=== PATIENT | male | born 1955 | race Asian ===

== ENCOUNTER 2020-02-06 12:29 | Emergency (ER) | payer BC ==
--- NOTE | 2020-02-06 13:01 | EDM.PDOC ---
ED HPI GENERAL MEDICAL PROBLEM - General Chief Complaint: Eye Problems Stated Complaint: RED LEFT EYE AND RIGHT EYE SORE Time Seen by Provider: 02/06/20 12:38 Source of Information: Reports: Patient History Limitations: Reports: Language Barrier (A language barrier but he has been able to communicate with a ) - History of Present Illness INITIAL COMMENTS - FREE TEXT/NARRATIVE: 64-year-old male of the [place] presents to the ED with a red slightly painful left eye. He noticed this yesterday but it became much worse overnight. He has no known trauma to the eye that he can recollect. He takes no eyedrops. He indicates that he has no change in his vision with his eyeglasses. Denies any other problems. He is not on aspirin or any other blood thinners. Feels like there is something in the lateral aspect of his eye. Onset: Gradual Onset Date: 02/05/20 Duration: Hour(s):, Getting Worse Location: Reports: Face (Appreciates blood lateral aspect left eye) Quality: Reports: Ache Severity: Mild (Aching discomfort.) Improves with: Reports: None Worsens with: Reports: None Context: Reports: Other (Fr[place] is occurrence). 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 Heart rate is 58 and sinus respiratory to 16 BP 138/68. Pulse ox 96% on room air). Denies: Fever, Chills, Malaise, Weakness, Fatigue HEENT: Reports: Eye Pain (Has left lateral eye discomfort), Glasses ( like there is something in his eye.) Respiratory: Reports: No Symptoms Cardiovascular: Reports: No Symptoms Endocrine: Reports: No Symptoms GI/Abdominal: Reports: No Symptoms : Reports: No Symptoms Musculoskeletal: Reports: No Symptoms Skin: Reports: No Symptoms Neurological: Reports: No Symptoms Psychiatric: Reports: No Symptoms Hematologic/Lymphatic: Reports: No Symptoms Immunologic: Reports: No Symptoms ED EXAM GENERAL W FULL EYE - Physical Exam Exam: See Below Exam Limited By: Other (Temperature is 36.1. Heart rate is 58 and sinus respiratory to 16 BP 138/60. O2 sats 96% on room air) General Appearance: Alert, WD/WN, Anxious, Mild Distress Eye Exam: Right Eye: Other (The fundus is also normal on ophthalmoscopy.), Left Eye: Conjunctival Injection (And has a fairly large subconjunctival hemorrhage of the left lateral eye covers approximately 40% of the lateral light to the midline inferiorly and adjacent to the cornea.), Normal Fundi, PERRL Eyelids: Bilateral: Normal Appearance Conjunctiva & Sclera: Left: Subconjuctival Hemorrhage (Moderate lateral left eye ) Cornea Exam: Left: Normal Appearance (Normal appearance on slit lamp examination.) Extraocular Movements: Bilateral: Intact Pupils: Normal Accommodation Pupillary Size: Bilateral: 5 mm Pupillary Reaction: Bilateral: Brisk Anterior Chamber: Left: Normal Appearance Posterior Chamber: Left: Normal Funduscopic Course - Vital Signs Last Recorded V/S: Last Vital Signs Temp 36.1 C 02/06/20 12:42 Pulse 58 L 02/06/20 12:42 Resp 16 02/06/20 12:42 BP 138/68 02/06/20 12:42 Pulse Ox 96 02/06/20 12:42 - Radiology Interpretation Free Text/Narrative:: T4-year-old male of [place] presents to the ED with redness and feeling a foreign body sensation left lateral eye. He first appreciated this last evening but it seemed to worsen overnight. Examination reveals he has a subconjunctival hemorrhage lateral aspect of the eye to the midline inferiorly and adjacent to the limbus. It travels superiorly into the upper quadrant laterally as well. There is no evidence of corneal abrasion anterior chamber is clear the posterior chambers clear and the retina is well-defined without any abnormalities appreciated on slit-lamp as well as indirect ophthalmoscopy. Conservative Rx. Departure - Departure Time of Disposition: 12:59 Disposition: Home, Self-Care 01 Condition: Fair Clinical Impression: Subconjunctival hemorrhage of left eye - Discharge Information *PRESCRIPTION DRUG MONITORING PROGRAM REVIEWED*: Not Applicable *COPY OF PRESCRIPTION DRUG MONITORING REPORT IN PATIENT [place]: Not Applicable Instructions: Subconjunctival Hemorrhage Referrals: PCP,None [Primary Care Provider] - Forms: ED Department Discharge Additional Instructions: Evaluation in the emergency room today in regards to blood appreciated on the lateral aspect of your left thigh. This appears to have started yesterday and worsened overnight. Trauma to the eye. No change in visual acuity. On examination there is blood underneath the conjunctiva which is a clear membrane over the eye. A broken blood vessel is appreciated in this area that has caused the blood on the lateral aspect of the eye. There is no abnormalities of the inside of the eye or retina and it will not interfere with your vision. The bleeding will quit on its own and go through all the colors of a bruise over the next 10 to 14 days and go away. It often will recur sometime within the next year or 2. Also sometimes it will occur in the other eye within a short period of time. Possibility of rubbing the eye during the night while sleeping could have caused this but sometimes it just happens because blood vessels get old and break on their own. It looks bad but it means nothing. Sepsis Event Note - Evaluation Sepsis Screening Result: No Definite Risk - Focused Exam Vital Signs: Vital Signs Temp Pulse Resp BP Pulse Ox 02/06/20 12:42 36.1 C 58 L 16 138/68 96 Date Exam was Performed: 02/06/20 Time Exam was Performed: 13:01
== END 2020-02-06 13:25 | disposition home or self-care (01) ==
LOC: JD.ED 12:29
DX: H11.32 Conjunctival hemorrhage, left eye (principal)
CPT/HCPCS: 99282; 99283

== ENCOUNTER 2020-10-20 23:41 | Emergency (ER) | payer BC ==
[2020-10-21] MEDS ORDERED: FLU VACC QS2020-21(6MOS UP)/PF 60 MCG/0.5 ML SYRINGE IM ONE (00:15)
--- NOTE | 2020-10-21 00:43 | EDM.PDOC ---
ED HPI GENERAL MEDICAL PROBLEM - General Chief Complaint: Upper Extremity Injury/Pain Stated Complaint: LEFT SHOULDER PAIN Time Seen by Provider: 10/21/20 00:09 Source of Information: Reports: Patient History Limitations: Reports: Language Barrier (Uses iPad Source Audio state tested nursing assistant) - History of Present Illness INITIAL COMMENTS - FREE TEXT/NARRATIVE: Mr. Alonso is a very pleasant 65-year-old gentleman who now presents to the ED with progressively worsening pain tohis left scapula for the past 2 days, since 10/18/2019. He denies suffering any injury to the area, and he does not recall straining it. No prior similar pain. The patient applied an icy hot patch to the area this evening, which has not helped. Here in the ED, the patient is found to be hemodynamically stable, afebrile, saturating 96% on room air. Prior to Friday, the patient denies having a recent fever, chills, sore throat, ear pain, nasal or sinus congestion, cough, dyspnea, chest pain, palpita tions, nausea, vomiting, constipation, diarrhea, abdominal pain, urinary symptoms, recent weight gain or weight loss, recent bloody bowel movements or black bowel movements, recent joint aches, headaches, or rashes. His PCP is Dr. Mohamud Basilio. He has not received an influenza vaccine this season, but agreed to receive one here in the ED. Left Posterior Shoulder Pain Score (Numeric/FACES): 8 - Related Data Allergies Allergy/AdvReac Type Severity Reaction Status Date / Time Sulfa (Sulfonamide Allergy Severe Rash Verified 10/21/20 00:01 Antibiotics) Home Meds: Home Meds Orphenadrine [Norflex] 1 tab PO Q12H PRN #14 tab.er 10/21/20 [Rx] Past Medical History HEENT History: Reports: Other (See Below) (left eye hemorrage) Endocrine/Metabolic History: Reports: Diabetes, Type II (untreated) Social & Family History - Tobacco Use Tobacco Use Status *Q: Former Tobacco User Years of Tobacco use: 33 Packs/Tins Daily: 0.1 Month/Year Tobacco Last Used: Quit around 2009 Second Hand Smoke Exposure: No - Caffeine Use Caffeine Use: Reports: Tea - Alcohol Use Alcohol Use History: No - Recreational Drug Use Recreational Drug Use: No - Living Situation & Occupation Living situation: Reports: , Alone ( and kids live in [place]) 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 ED EXAM, GENERAL - Physical Exam Exam: See Below Exam Limited By: No Limitations General Appearance: Alert, No Apparent Distress, Thin Eye Exam: Bilateral Eye: EOMI, Normal Inspection Ears: Normal External Exam, Hearing Grossly Normal Nose: Normal Inspection Throat/Mouth: Normal Inspection, Normal Lips, Normal Voice, No Airway Compromise Head: Atraumatic, Normocephalic Neck: Normal Inspection, Full Range of Motion Respiratory/Chest: No Respiratory Distress, Lungs Clear, Normal Breath Sounds, No Accessory Muscle Use Cardiovascular: Normal Peripheral Pulses, Regular Rate, Rhythm, No Edema, No Gallop, No JVD, No Murmur, No Rub Peripheral Pulses: 3+: Radial (L), Radial (R) GI/Abdominal: Normal Bowel Sounds, Soft, Non-Tender, No Organomegaly, No Distention, No Abnormal Bruit, No Mass Back Exam: Normal Inspection, Full Range of Motion, Other (No visible abnormality to the left scapular area, where the patient indicates his pain is, such as swelling, erythema, ecchymosis, or abrasion, however, the patient's pain is reproducible with direct palpation over his left scapula. Pain is also worsened with movement of his left upper extremity.) Extremities: Normal Inspection, Normal Range of Motion, No Pedal Edema, Normal Capillary Refill Neurological: Alert, Oriented, Normal Cognition, No Motor/Sensory Deficits Psychiatric: Normal Affect Skin Exam: Warm, Dry, Intact, Normal Color, No Rash Course - Vital Signs Last Recorded V/S: Last Vital Signs Temp 37.5 C 10/20/20 23:54 Pulse 69 10/20/20 23:54 Resp 20 10/20/20 23:54 BP 138/71 10/20/20 23:54 Pulse Ox 96 10/20/20 23:54 - Orders/Labs/Meds Orders: Active Orders 24 hr Category Date Time Status Chest 2V [CR] Stat Exams 10/21/20 00:37 Taken Shoulder Comp Lt [CR] Stat Exams 10/21/20 00:37 Taken Meds: Medications Discontinued Medications Generic Name Dose Route Start Last Admin Trade Name Freq PRN Reason Stop Dose Admin Ibuprofen 600 mg 01/30/21 02:28 10/21/20 02:53 Motrin PO 10/21/20 02:29 600 mg ONETIME ONE Administration Influenza Virus Vaccine 60 mcg 10/21/20 00:15 10/21/20 02:51 Fluzone Quad Syringe IM 10/21/20 00:16 60 mcg .ONCE ONE Administration Orphenadrine Citrate 100 mg 10/21/20 02:28 10/21/20 02:53 Norflex PO 10/21/20 02:29 100 mg ONETIME STA Administration - Re-Assessments/Exams Free Text/Narrative Re-Assessment/Exam: 10/21/20 00:38 As above, the patient has had progressively worsening left scapular pain since 10/18/2020. An icy hot patch that he applied this evening is not helping. On examination, there are no visible abnormalities to the area, but the pain is reproducible with direct palpation, strongly suggesting an inf raspinatus strain. I have ordered a work-up that includes both a chest x-ray and x-rays of the left shoulder to rule out other possibilities. 10/21/20 02:17 Two-view chest radiograph reviewed. The cardiac silhouette is within normal limits. No pulmonary vascular congestion. No pleural effusions. No focal infiltrate. No pneumothorax. There is thoracolumbar scoliosis. Formal read per the Radiologist pending. 3-view radiographs of the left shoulder appear to be grossly normal, with no fracture or dislocation identified. Formal read per the Radiologist pending. Based on the above, I suspect that the patient's left scapular pain is musculoskeletal in etiology. I will recommend starting him on Norflex, along with ibuprofen. Additionally, the patient may be an excellent candidate for dry needling, presuming he will still have pain by Friday. 10/21/20 02:27 X-ray results discussed with the patient via the iPad press tender short goods. All questions answered. He is agreeable to taking Norflex and ibuprofen, however, he declined an offer for referral to PT for dry needling. The patient stated that he would not have a problem with his discharge instructions being in [place]. The patient will be given an influenza vaccine prior to discharge. Departure - Departure Time of Disposition: 02:29 Disposition: Home, Self-Care 01 Condition: Good Clinical Impression: Infraspinatus strain - Discharge Information *PRESCRIPTION DRUG MONITORING PROGRAM REVIEWED*: Not Applicable *COPY OF PRESCRIPTION DRUG MONITORING REPORT IN PATIENT [place]: Not Applicable Prescriptions: Orphenadrine [Norflex] 1 tab PO Q12H PRN #14 tab.er PRN Reason: Muscle Spasm Instructions: Muscle Strain, [id number] Referrals: PCP,Not In Area [Ordering Only Provider] - Forms: ED Department Discharge Additional Instructions: You were seen in the emergency room after developing progressively worsening pain to the back of your left shoulder on Friday. Work-up in the ER included a chest x-ray and x-rays of your left shoulder, all of which were completely normal. No broken bones, popped lung, masses in your chest, or other anatomic abnormalities were found. Based on your history, physical exam, and ER x-rays, the cause of your pain is most likely due to a strain or spasm of your left infraspinatus muscle. This is a muscle that is found on the back of your scapula (shoulder blade). You have been started on the muscle relaxant Norflex, and a prescription for Nor flex has been sent to the [facility], located in the [employer] store. Take 1 tablet of Norflex every 12 hours, starting this evening, 10/21/2020. In addition to Norflex, you may also take [id number] ibuprofen, 2 to 3 tablets (400 to 600 mg) up to every 8 hours, with food, as needed for discomfort. If your pain has not significantly improved after a few days, we recommend that you follow-up with your PCP, Dr. Mohamud Basilio. If any other problems, please do not hesitate to return to the ER. You were given an influenza vaccine during your ER visit. Sepsis Event Note (ED) - Evaluation Sepsis Screening Result: No Definite Risk - Focused Exam Vital Signs: Vital Signs Temp Pulse Resp BP Pulse Ox 10/20/20 23:54 37.5 C 69 20 138/71 96 - My Orders Last 24 Hours: My Active Orders 10/21/20 00:37 Chest 2V [CR] Stat Shoulder Comp Lt [CR] Stat - Assessment/Plan Last 24 Hours: My Active Orders 10/21/20 00:37 Chest 2V [CR] Stat Shoulder Comp Lt [CR] Stat
[2020-10-21] MEDS ORDERED: Ibuprofen 600 MG Tab PO ONE (02:28)
[2020-10-21] MEDS ORDERED: Orphenadrine 100 MG Tab.ER PO STA (02:28)
--- NOTE | 2020-10-21 10:22 | CR ---
Chest: 2 views of the chest were obtained. Comparison: No prior chest imaging is available. Heart size is normal. Tortuous thoracic aorta is seen. Lungs are clear and no acute parenchymal change. Mild scoliosis is noted. Impression: 1. Nothing acute is identified on frontal chest x-ray. Diagnostic code #2
--- NOTE | 2020-10-21 10:33 | CR ---
Left shoulder: 3 views left shoulder were obtained. Comparison: Prior left clavicle study of 03/31/18. Mild degenerative change is seen within the acromioclavicular joint with mild inferior spurring. Glenohumeral joint shows minimal spurring. No acute fracture, dislocation or other bony abnormality is appreciated. Impression: 1. Slight degenerative change as noted above. 2. Nothing acute is appreciated. Diagnostic code #2
== END 2020-10-21 03:00 | disposition home or self-care (01) ==
LOC: JD.ED 23:41
DX: S46.912A Strain of unspecified muscle, fascia and tendon at shoulder and upper arm level, left arm, initial encounter (principal); Z88.2 Allergy status to sulfonamides; Z87.891 Personal history of nicotine dependence; Z23 Encounter for immunization; X58.XXXA Exposure to other specified factors, initial encounter
CPT/HCPCS: 71046; 73030; 90471; 90686; 99283; A9270; G0008

== ENCOUNTER 2021-07-23 14:36 | Emergency (ER) | payer BC ==
--- NOTE | 2021-07-23 15:26 | EDM.PDOC ---
ED HPI GENERAL MEDICAL PROBLEM - General Chief Complaint: Respiratory Problem Stated Complaint: DIZZY AND COUGH Time Seen by Provider: 07/23/21 15:14 Source of Information: Reports: Patient, RN Notes Reviewed History Limitations: Reports: No Limitations, Language Barrier (slight; pt speaks little icelandic-son on phone helps to translate) - History of Present Illness INITIAL COMMENTS - FREE TEXT/NARRATIVE: Patient is a 66-year-old male who presents to the ER for the evaluation of his cough and dizziness. Patient states that he has been symptomatic for about 10 days. States that the dizziness is generalized, and he is not found anything that is really made it better or worse. He has a dry intermittent cough as well. He states that he had a fever may be about 2 or 3 weeks ago but has not noticed any fever at this time. Patient states he has a medical care provider but cannot member the name but states they work at [facility]. He is a diabetic. Patient's not been around anyone has been sick that he is aware of. States that is been taking his medications as prescribed. Patient is not predominantly Georgian speaking, so the patient's son is on the phone to help translate. - Related Data Allergies Allergy/AdvReac Type Severity Reaction Status Date / Time Sulfa (Sulfonamide Allergy Intermediate Rash Verified 07/23/21 15:08 Antibiotics) Home Meds: Home Meds metFORMIN [Glucophage] 1 tab PO BIDMEALS #60 tab 07/23/21 [Rx] Past Medical History HEENT History: Reports: Epistaxis Endocrine/Metabolic History: Reports: Diabetes, Type II Social & Family History - Tobacco Use Tobacco Use Status *Q: Never Tobacco User - Caffeine Use Caffeine Use: Reports: Soda ED ROS GENERAL - Review of Systems Review Of Systems: Comprehensive ROS is negative, except as noted in HPI. ED EXAM, GENERAL - Physical Exam Exam: See Below Exam Limited By: No Limitations General Appearance: Alert, WD/WN, No Apparent Distress Respiratory/Chest: No Respiratory Distress, Lungs Clear, Normal Breath Sounds, No Accessory Muscle Use, Chest Non-Tender Cardiovascular: Normal Peripheral Pulses, Regular Rate, Rhythm, No Edema Extremities: Normal Inspection, Normal Capillary Refill Neurological: Alert, Oriented, Normal Cognition, No Motor/Sensory Deficits Psychiatric: Normal Affect, Normal Mood Skin Exam: Warm, Dry, Intact, Normal Color, No Rash Course - Vital Signs Last Recorded V/S: Last Vital Signs Temp 98.2 F 07/23/21 15:03 Pulse 64 07/23/21 15:03 Resp 18 07/23/21 15:03 BP 137/64 07/23/21 15:03 Pulse Ox 100 07/23/21 15:03 - Orders/Labs/Meds Orders: Active Orders 24 hr Category Date Time Status Peripheral IV Insertion Adult [OM.PC] Routine Oth 07/23/21 16:14 Ordered Labs: Laboratory Tests 07/23/21 07/23/21 07/23/21 Range/Units 15:29 15:29 15:29 WBC 5.66 (4.23-9.07) K/mm3 RBC 4.11 L (4.63-6.08) M/mm3 Hgb 12.3 L (13.7-17.5) gm/dl Hct 37.4 L (40.1-51.0) % MCV 91.0 (79.0-92.2) fl MCH 29.9 (25.7-32.2) pg MCHC 32.9 (32.2-35.5) g/dl RDW Std Deviation 40.2 (35.1-43.9) fL Plt Count 304 (163-337) K/mm3 MPV 8.9 L (9.4-12.3) fl Neut % (Auto) 58.5 (34.0-67.9) % Lymph % (Auto) 29.7 (21.8-53.1) % [place] % (Auto) 10.2 (5.3-12.2) % Eos % (Auto) 1.4 (0.8-7.0) Baso % (Auto) 0.0 L (0.1-1.2) % Neut # (Auto) 3.31 (1.78-5.38) K/mm3 Lymph # (Auto) 1.68 (1.32-3.57) K/mm3 [place] # (Auto) 0.58 (0.30-0.82) K/mm3 Eos # (Auto) 0.08 (0.04-0.54) K/mm3 Baso # (Auto) 0.00 L (0.01-0.08) K/mm3 Sodium 135 L (136-145) mEq/L Potassium 4.2 (3.5-5.1) mEq/L Chloride 98 (98-107) mEq/L Carbon Dioxide 28 (21-32) mEq/L Anion Gap 13.2 (5-15) BUN 18 (7-18) mg/dL Creatinine 1.2 (0.7-1.3) mg/dL Est Cr Clr Drug Dosing TNP Estimated GFR (MDRD) > 60 (>60) mL/min BUN/Creatinine Ratio 15.0 (14-18) Glucose 440 H* (70-99) mg/dL POC Glucose (70-99) mg/dL Calcium 8.5 (8.5-10.1) mg/dL Magnesium 1.9 (1.8-2.4) mg/dL Total Bilirubin 0.4 (0.2-1.0) mg/dL AST 14 L (15-37) U/L ALT 26 (16-63) U/L Alkaline Phosphatase 97 (46-116) U/L C-Reactive Protein <0.2 (<1.0) mg/dL Total Protein 6.8 (6.4-8.2) g/dl Albumin 3.4 (3.4-5.0) g/dl Globulin 3.4 gm/dL Albumin/Globulin Ratio 1.0 (1-2) Ketones (0.0-0.3) mM SARS-CoV-2 RNA (LEXIE) (NEGATIVE) 07/23/21 07/23/21 07/23/21 Range/Units 15:29 17:33 17:35 WBC (4.23-9.07) K/mm3 RBC (4.63-6.08) M/mm3 Hgb (13.7-17.5) gm/dl Hct (40.1-51.0) % MCV (79.0-92.2) fl MCH (25.7-32.2) pg MCHC (32.2-35.5) g/dl RDW Std Deviation (35.1-43.9) fL Plt Count (163-337) K/mm3 MPV (9.4-12.3) fl Neut % (Auto) (34.0-67.9) % Lymph % (Auto) (21.8-53.1) % [place] % (Auto) (5.3-12.2) % Eos % (Auto) (0.8-7.0) Baso % (Auto) (0.1-1.2) % Neut # (Auto) (1.78-5.38) K/mm3 Lymph # (Auto) (1.32-3.57) K/mm3 [place] # (Auto) (0.30-0.82) K/mm3 Eos # (Auto) (0.04-0.54) K/mm3 Baso # (Auto) (0.01-0.08) K/mm3 Sodium (136-145) mEq/L Potassium (3.5-5.1) mEq/L Chloride (98-107) mEq/L Carbon Dioxide (21-32) mEq/L Anion Gap (5-15) BUN (7-18) mg/dL Creatinine (0.7-1.3) mg/dL Est Cr Clr Drug Dosing Estimated GFR (MDRD) (>60) mL/min BUN/Creatinine Ratio (14-18) Glucose (70-99) mg/dL POC Glucose 141 H (70-99) mg/dL Calcium (8.5-10.1) mg/dL Magnesium (1.8-2.4) mg/dL Total Bilirubin (0.2-1.0) mg/dL AST (15-37) U/L ALT (16-63) U/L Alkaline Phosphatase (46-116) U/L C-Reactive Protein (<1.0) mg/dL Total Protein (6.4-8.2) g/dl Albumin (3.4-5.0) g/dl Globulin gm/dL Albumin/Globulin Ratio (1-2) Ketones 0.04 (0.0-0.3) mM SARS-CoV-2 RNA (LEXIE) Positive H (NEGATIVE) Meds: Medications Discontinued Medications Generic Name Dose Route Start Last Admin Trade Name Freq PRN Reason Stop Dose Admin Sodium Chloride 1,000 mls @ 999 mls/hr 07/23/21 16:15 07/23/21 16:56 Normal Saline IV 07/23/21 17:15 999 mls/hr ONETIME ONE Administration Insulin Human Regular 10 unit 07/23/21 16:17 07/23/21 16:56 Insulin Regular, Human 100 Units/Ml 3 Ml Vial IV 07/23/21 16:18 10 unit ONETIME ONE Administration Sodium Chloride 10 ml 07/23/21 16:14 07/23/21 16:57 Sodium Chloride 0.9% 10 Ml Syringe FLUSH 10 ml ASDIRECTED PRN Administration Keep Vein Open - Re-Assessments/Exams Free Text/Narrative Re-Assessment/Exam: 07/23/21 15:25 Patient presents to the ER for evaluation of his cough and dizziness. We will go and get some basic labs, and a COVID-19 swab along with a chest x-ray for ongoing management. 07/23/21 16:24 Labs have started to result, CBC is unremarkable, CMP is impressive for an elevated glucose of 440. I did speak with the patient, and he states that he is not taking anything for oral medications for his diabetes at this time. We will go ahead and get some IV fluids started, and give him 10 units insulin initially and then recheck his blood sugar after about 30 minutes. Plan to send him home on oral Metformin as well 500 mg 2 times a day and follow-up with his regular care provider for ongoing management. COVID-19 screen is still pending at this time. 07/23/21 17:39 Apparently the COVID-19 screen got missed at initial orders, so has been performed just a few minutes ago. RN did tell me that the patient blood sugar has improved to 141, he is finishing up his fluids at this time, after this bag of fluids, we will hold off on fluids. We will go ahead and await the COVID-19 screen and hopefully get him discharged home. 07/23/21 18:58 Patient's COVID-19 screen did come back positive. Since he believes he has been symptomatic for more than 10 days, he is out of the window for monoclonal antibodies, but he should also get better sooner rather than later. I did explain this to him and his daughter who is now on the phone translating. She states that she will be able to have him get a picture of the discharge instructions and translate them for further management. Departure - Departure Time of Disposition: 18:58 Disposition: Home, Self-Care 01 Condition: Good Clinical Impression: COVID-19 Hyperglycemia due to type 2 diabetes mellitus Qualifiers: Diabetes mellitus fdc insulin use: without fdc use Qualified Code(s): E11.65 - Type 2 diabetes mellitus with hyperglycemia Uncontrolled diabetes mellitus Qualifiers: Diabetes mellitus type: type 2 Glycemic state: with hyperglycemia Qualified Code(s): E11.65 - Type 2 diabetes mellitus with hyperglycemia - Discharge Information *PRESCRIPTION DRUG MONITORING PROGRAM REVIEWED*: No *COPY OF PRESCRIPTION DRUG MONITORING REPORT IN PATIENT [place]: No Prescriptions: metFORMIN [Glucophage] 1 tab PO BIDMEALS #60 tab Instructions: Complementary and Alternative Medical Treatments for Diabetes, 10 Things You Can Do to Manage Your COVID-19 Symptoms at Home - [facility] (04/06/2021), Diabetes Mellitus and Nutrition, Adult Referrals: PCP,None [Primary Care Provider] - Forms: ED Department Discharge Additional Instructions: You were evaluated in this ER for your dizziness, and cough. Laboratory evaluation did demonstrate that your blood sugar was quite elevated at 440. You were given some IV fluids and insulin for this, and this did seem to lower your blood sugar, to a more acceptable level. Your COVID-19 screen at today's visit was positive, since you state you have been symptomatic for more than 10 days, you should be out of the window for isolation or quarantine purposes however the [facility] Department of [facility] will likely contact you to tell you otherwise. I would recommend that you try to stay away from others as much as possible, until you hear from the [facility] Department of [facility] for ongoing management. You may also call them at [phone] tomorrow for further guidance. All other labs are essentially unremarkable. You have been started on an oral medication to manage your blood sugars, this will be Metformin 1 tablet 2 times a day. You have been given enough for 30-day supply. You will need to contact your primary medical provider to schedule an appointment for ongoing management and for refill of medications or change in medications if they should be warranted. This medication was electronically sent to the [place] pharmacy located in the [employer] [facility]. If you do not already have a blood sugar monitor, you should obtain 1 of these at any retail place like [employer] or any pharmacy, and use to check your blood sugars at least 2 times a day, until they are more stable, or staying about the same range when you check them. You have been given a few educational handouts on diabetes and diet, and other alternative therapies/remedies that can be tried in order to manage your diabetes. Please review these at your leisure. Do not hesitate to return to the ER at any time if symptoms change or worsen. Sepsis Event Note (ED) - Evaluation Sepsis Screening Result: No Definite Risk - Focused Exam Vital Signs: Vital Signs Temp Pulse Resp BP Pulse Ox 07/23/21 15:03 98.2 F 64 18 137/64 100 - My Orders Last 24 Hours: My Active Orders 07/23/21 16:14 Peripheral IV Insertion Adult [OM.PC] Routine - Assessment/Plan Last 24 Hours: My Active Orders 07/23/21 16:14 Peripheral IV Insertion Adult [OM.PC] Routine
[2021-07-23] MEDS ORDERED: Sodium Chloride 0.9% 10 ML Syringe FLUSH PRN (16:14)
[2021-07-23] MEDS ORDERED: Sodium Chloride 0.9% 1,000 ML IV ONE (16:15)
[2021-07-23] MEDS ORDERED: Insulin Regular, Human 100 Units/ML 3 ML Vial IV ONE (16:17)
--- NOTE | 2021-07-23 16:18 | CR ---
Chest: Portable view of the chest was obtained. Comparison: No prior chest x-ray is available. Heart size and mediastinum are normal. Lungs are clear with no acute parenchymal change. Bony structures show nothing acute. Impression: 1. Nothing acute is seen on portable chest x-ray. Diagnostic code #1
== END 2021-07-23 19:15 | disposition home or self-care (01) ==
LOC: JD.ED 14:36 → MERGE 14:36 → JD.ED 19:15
DX: U07.1 COVID-19 (principal); E11.65 Type 2 diabetes mellitus with hyperglycemia; Z88.2 Allergy status to sulfonamides; Z79.84 Long term (current) use of oral hypoglycemic drugs
CPT/HCPCS: 36415; 71045; 71045-26; 80053; 82009; 82947; 83735; 85025; 86140; 87804; 99284-25; J1815-GY; J7030; U0002

== ENCOUNTER 2021-08-22 17:29 | Emergency (ER) | payer BC ==
--- NOTE | 2021-08-22 17:39 | EDM.PDOC ---
ED HPI GENERAL MEDICAL PROBLEM - General Chief Complaint: General Stated Complaint: HEART Time Seen by Provider: 08/22/21 17:37 - History of Present Illness INITIAL COMMENTS - FREE TEXT/NARRATIVE: 66-year-old male presents the emergency room with a history of having abnormal EKG in the clinic. Patient was seen in the clinic today for follow-up on his diabetes. An EKG was done and it potentially had some abnormalities on it the patient was referred here for further evaluation. Patient denies any chest pain breathing difficulties or shortness of breath no nausea no vomiting no diaphoresis. Patient does not have a history of heart problems and he has negative family history for heart problems patient denies smoking. Patient is treated for diabetes and followed for hypertension. Patient has a significant family history of diabetes type 2. The patient is a migrant from [facility]. - Related Data Allergies Allergy/AdvReac Type Severity Reaction Status Date / Time Sulfa (Sulfonamide Allergy Severe Rash Verified 08/22/21 17:48 Antibiotics) Home Meds: Home Meds metFORMIN [Glucophage] 500 tab PO TID 08/22/21 [History] Past Medical History HEENT History: Reports: Epistaxis, Other (See Below) Other HEENT History: left eye hemorrage Endocrine/Metabolic History: Reports: Diabetes, Type II Other Endocrine/Metabolic History: Diabetic unsure of type - Infectious Disease History Infectious Disease History: Reports: None Social & Family History - Family History Family Medical History: No Pertinent Family History - Caffeine Use Caffeine Use: Reports: Soda, Tea - Living Situation & Occupation Living situation: Reports: Alone, 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[employer]) ED ROS GENERAL - Review of Systems Review Of Systems: See Below Constitutional: Reports: No Symptoms HEENT: Reports: No Symptoms Respiratory: Reports: No Symptoms Cardiovascular: Reports: No Symptoms GI/Abdominal: Reports: No Symptoms : Reports: No Symptoms Neurological: Reports: No Symptoms ED EXAM, GENERAL - Physical Exam Exam: See Below Exam Limited By: Language Barrier (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) General Appearance: Alert, No Apparent Distress, Thin Head: Atraumatic, Normocephalic Neck: Normal Inspection, Supple, Non-Tender, Full Range of Motion Respiratory/Chest: No Respiratory Distress, Lungs Clear, Normal Breath Sounds, No Accessory Muscle Use, Chest Non-Tender Cardiovascular: Normal Peripheral Pulses, Regular Rate, Rhythm, No Edema, No Gallop, No JVD, No Murmur, No Rub GI/Abdominal: Normal Bowel Sounds, Soft, Non-Tender, No Organomegaly, No Distention, No Abnormal Bruit, No Mass Back Exam: Normal Inspection Extremities: Normal Inspection, Non-Tender, No Pedal Edema Neurological: Alert, Oriented, CN II-XII Intact, Normal Cognition, Normal Gait, Normal Reflexes, No Motor/Sensory Deficits #1 Interpretation EKG Date: 08/22/21 Rhythm: NSR Rate (Beats/Min): 68 [place]: Normal P-Wave: Present (Less than 0.15 mV in V1) QRS: Normal ST-T: Normal QT: Normal Comparison: NA - No Prior EKG EKG Interpretation Comments: Borderline EKG Course - Vital Signs Last Recorded V/S: Last Vital Signs Temp 36.2 C 08/22/21 17:38 Pulse 63 08/22/21 17:38 Resp 21 H 08/22/21 17:38 BP 154/74 H 08/22/21 17:38 Pulse Ox 100 08/22/21 17:38 - Orders/Labs/Meds Labs: Laboratory Tests 08/22/21 08/22/21 08/22/21 Range/Units 17:40 17:40 17:40 WBC 5.70 (4.23-9.07) K/mm3 RBC 4.27 L (4.63-6.08) M/mm3 Hgb 13.1 L (13.7-17.5) gm/dl Hct 39.2 L (40.1-51.0) % MCV 91.8 (79.0-92.2) fl MCH 30.7 (25.7-32.2) pg MCHC 33.4 (32.2-35.5) g/dl RDW Std Deviation 40.8 (35.1-43.9) fL Plt Count 291 (163-337) K/mm3 MPV 9.2 L (9.4-12.3) fl Neut % (Auto) 55.6 (34.0-67.9) % Lymph % (Auto) 29.3 (21.8-53.1) % [place] % (Auto) 12.1 (5.3-12.2) % Eos % (Auto) 2.8 (0.8-7.0) Baso % (Auto) 0.2 (0.1-1.2) % Neut # (Auto) 3.17 (1.78-5.38) K/mm3 Lymph # (Auto) 1.67 (1.32-3.57) K/mm3 [place] # (Auto) 0.69 (0.30-0.82) K/mm3 Eos # (Auto) 0.16 (0.04-0.54) K/mm3 Baso # (Auto) 0.01 (0.01-0.08) K/mm3 PT 9.8 (9.7-12.0) SECONDS INR < 0.93 APTT 27.0 (21.7-31.4) SECONDS Sodium 143 (136-145) mEq/L Potassium 3.9 (3.5-5.1) mEq/L Chloride 105 (98-107) mEq/L Carbon Dioxide 31 (21-32) mEq/L Anion Gap 10.9 (5-15) BUN 18 (7-18) mg/dL Creatinine 1.2 (0.7-1.3) mg/dL Est Cr Clr Drug Dosing TNP Estimated GFR (MDRD) > 60 (>60) mL/min BUN/Creatinine Ratio 15.0 (14-18) Glucose 142 H (70-99) mg/dL Calcium 9.7 (8.5-10.1) mg/dL Total Bilirubin 0.2 (0.2-1.0) mg/dL AST 18 (15-37) U/L ALT 22 (16-63) U/L Alkaline Phosphatase 75 (46-116) U/L Troponin I < 0.017 (0.00-0.056) ng/mL Total Protein 7.9 (6.4-8.2) g/dl Albumin 3.9 (3.4-5.0) g/dl Globulin 4.0 gm/dL Albumin/Globulin Ratio 1.0 (1-2) - Re-Assessments/Exams Free Text/Narrative Re-Assessment/Exam: 08/22/21 20:06 KG here in the emergency room is entirely normal his EKG done in the clinic shows some subtle ST changes at V1 minimal ST elevation in V2 which is a normal variant for males. Patient is not complaining of any chest pain breathing difficulties or other identifiable anginal equivalents. Patient's troponin is negative. We will discharge home at this time discharge 6 instructions and explained in detail with the patient via the online quartz min[employer]. Departure - Departure Time of Disposition: 20:07 Disposition: Home, Self-Care 01 Clinical Impression: EKG abnormality - Discharge Information Referrals: PCP,None [Primary Care Provider] - Forms: ED Department Discharge Additional Instructions: Return to the emergency room with any questions problems or concerning symptoms. Follow-up with your regular healthcare provider within 1 week for recheck. Discuss with them if you would benefit from a baby aspirin daily. Make sure they have checked cholesterol. Sepsis Event Note (ED) - Focused Exam Vital Signs: Vital Signs Temp Pulse Resp BP Pulse Ox 08/22/21 17:38 36.2 C 63 21 H 154/74 H 100
--- NOTE | 2021-08-22 18:32 | CR ---
Chest: Portable view of the chest was obtained. Comparison: Prior chest x-ray of 10/21/20. Heart size is normal. Slightly tortuous thoracic aorta is seen. Lungs are clear with no acute parenchymal change. Bony structures show nothing acute. Impression: 1. Nothing acute is seen on portable chest x-ray. Diagnostic code #1
== END 2021-08-22 20:17 | disposition home or self-care (01) ==
LOC: JD.ED 17:29
DX: R94.31 Abnormal electrocardiogram [ECG] [EKG] (principal); Z88.2 Allergy status to sulfonamides
CPT/HCPCS: 36415; 71045; 71045-26; 80053; 84484; 85025; 85610; 85730; 93005; 93010; 99284; 99285-25

== ENCOUNTER 2021-09-13 08:03 | Emergency (ER) | payer BC ==
[2021-09-13] MEDS ORDERED: Ketorolac 15 MG/ML SDV IVPUSH ONE (08:35)
[2021-09-13] MEDS ORDERED: Baclofen 10 MG Tab PO ONE (08:35)
--- NOTE | 2021-09-13 08:41 | EDM.PDOC ---
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 Patient reports the pain is in the lower back area. He reports the pain is worse on the right side but goes across both sides. He reports presence of pain for about 1 week. Seems to get worse with bending and turning. He has been using ibuprofen with little relief. Patient states he has no fevers, groin pain, dysuria, recent injury, saddle paresthesias. [employer] service used. Bilateral Lower Back Pain Score (Numeric/FACES): 9 - Related Data Allergies Allergy/AdvReac Type Severity Reaction Status Date / Time Sulfa (Sulfonamide Allergy Severe Rash Verified 09/13/21 09:07 Antibiotics) Home Meds: Home Meds metFORMIN [Glucophage] 500 tab PO TID 08/22/21 [History] Baclofen 10 mg PO BEDTIME #7 tablet 09/13/21 [Rx] Past Medical History HEENT History: Reports: Epistaxis, Other (See Below) Other HEENT History: left eye hemorrage Cardiovascular History: Reports: Hypertension Endocrine/Metabolic History: Reports: Diabetes, Type II Other Endocrine/Metabolic History: Diabetic unsure of type - Infectious Disease History Infectious Disease History: Reports: Novel Coronavirus Social & Family History - Family History Family Medical History: No Pertinent Family History - Caffeine Use Caffeine Use: Reports: Soda, Tea - Living Situation & Occupation Living situation: Reports: Alone, 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[employer]) ED ROS GENERAL - Review of Systems Review Of Systems: See Below Free Text/Narrative/Comment: In addition to that documented in the HPI above, the additional ROS was obtained: Constitutional: Denies fevers or chills Eyes: Denies vision changes ENMT: Denies sore throat CV: Denies chest pain Resp: Denies SOB GI: Denies vomiting or diarrhea : Denies painful urination MSK: Denies recent trauma Skin: Denies new rashes Neuro: Denies new numbness or tingling or weakness Endocrine: Denies unexpected weight loss Heme: Denies bleeding disorders ED EXAM,LOWER BACK PAIN/INJURY - Physical Exam Exam: See Below Text/Narrative:: I have reviewed the triage vital signs Const: Well nourished, well developed, appears stated age Eyes: Pupils Equal and reactive to light bilaterally, no conjunctival injection HENT: No signs of trauma or swelling, Neck supple without meningismus CV: Regular Rate Rhythm, Warm, well-perfused extremities RESP: Unlabored respiratory effort GI: soft, non-tender, non-distended, no masses MSK: No midline spinal tenderness or step-offs. No gross deformities appreciated Skin: Warm, dry. No rashes. no flank ecchymosis. Neuro: Alert, forming machine tender II-XII grossly intact. Sensation and motor function of extremities grossly intact. Psych: Appropriate mood and affect. Course - Vital Signs Last Recorded V/S: Last Vital Signs Temp 36.4 C 09/13/21 08:15 Pulse 69 09/13/21 08:15 Resp 16 09/13/21 08:15 BP 150/62 H 09/13/21 08:15 Pulse Ox 97 09/13/21 08:15 - Orders/Labs/Meds Orders: Active Orders 24 hr Category Date Time Status Vaccine to be Administered/Admin Charge [RC] ASDIRECTED Care 09/13/21 09:15 Active Sodium Chloride 0.9% [Saline Flush] Med 09/13/21 08:50 Active 10 ml FLUSH ONETIME PRN Medication Orders Sodium Chloride (Sodium Chloride 0.9% 10 Ml Syringe) 10 ml FLUSH ONETIME PRN PRN Reason: IV FLUSH Last Admin: 09/13/21 09:11 Dose: 10 ml Documented by: RYLEY Labs: Laboratory Tests 09/13/21 09/13/21 09/13/21 Range/Units 08:34 08:44 08:44 WBC 8.11 (4.23-9.07) K/mm3 RBC 3.99 L (4.63-6.08) M/mm3 Hgb 11.9 L (13.7-17.5) gm/dl Hct 36.6 L (40.1-51.0) % MCV 91.7 (79.0-92.2) fl MCH 29.8 (25.7-32.2) pg MCHC 32.5 (32.2-35.5) g/dl RDW Std Deviation 40.3 (35.1-43.9) fL Plt Count 236 (163-337) K/mm3 MPV 9.0 L (9.4-12.3) fl Neut % (Auto) 69.9 H (34.0-67.9) % Lymph % (Auto) 16.8 L (21.8-53.1) % [place] % (Auto) 11.7 (5.3-12.2) % Eos % (Auto) 1.4 (0.8-7.0) Baso % (Auto) 0.1 (0.1-1.2) % Neut # (Auto) 5.67 H (1.78-5.38) K/mm3 Lymph # (Auto) 1.36 (1.32-3.57) K/mm3 [place] # (Auto) 0.95 H (0.30-0.82) K/mm3 Eos # (Auto) 0.11 (0.04-0.54) K/mm3 Baso # (Auto) 0.01 (0.01-0.08) K/mm3 Sodium 137 (136-145) mEq/L Potassium 3.8 (3.5-5.1) mEq/L Chloride 100 (98-107) mEq/L Carbon Dioxide 28 (21-32) mEq/L Anion Gap 12.8 (5-15) BUN 23 H (7-18) mg/dL Creatinine 1.1 (0.7-1.3) mg/dL Est Cr Clr Drug Dosing TNP Estimated GFR (MDRD) > 60 (>60) mL/min BUN/Creatinine Ratio 20.9 H (14-18) Glucose 226 H (70-99) mg/dL Calcium 8.7 (8.5-10.1) mg/dL Total Bilirubin 0.4 (0.2-1.0) mg/dL AST 13 L (15-37) U/L ALT 24 (16-63) U/L Alkaline Phosphatase 64 (46-116) U/L Total Protein 6.5 (6.4-8.2) g/dl Albumin 3.4 (3.4-5.0) g/dl Globulin 3.1 gm/dL Albumin/Globulin Ratio 1.1 (1-2) Lipase 102 (73-393) U/L Urine Color Yellow (Yellow) Urine Appearance Clear (Clear) Urine pH 6.5 (5.0-8.0) Ur Specific [place] 1.020 (1.005-1.030) Urine Protein 1+ H (Negative) Urine Glucose (UA) Trace H (Negative) Urine Ketones Negative (Negative) Urine Occult Blood Trace-lysed H (Negative) Urine Nitrite Negative (Negative) Urine Bilirubin Negative (Negative) Urine Urobilinogen 0.2 (0.2-1.0) Ur Leukocyte Esterase Negative (Negative) Urine RBC 5-10 H (0-5) /hpf Urine WBC 0-5 (0-5) /hpf Ur Squamous Epith Cells 0-5 (0-5) /hpf Urine Bacteria Few (FEW) /hpf Urine Mucus Few (FEW) /hpf Meds: Medications Generic Name Dose Route Start Last Admin Trade Name Kay PRN Reason Stop Dose Admin Sodium Chloride 10 ml 09/13/21 08:50 09/13/21 09:11 Sodium Chloride 0.9% 10 Ml Syringe FLUSH 10 ml ONETIME PRN Administration IV FLUSH Discontinued Medications Generic Name Dose Route Start Last Admin Trade Name Kay PRN Reason Stop Dose Admin Baclofen 10 mg 09/13/21 08:35 09/13/21 08:59 Baclofen 10 Mg Tab PO 09/13/21 08:36 10 mg ONETIME ONE Administration Influenza Virus Vaccine 60 mcg 09/13/21 10:00 Flu Vacc [id number] 36mos Up/Pf 60 Mcg/0.5 Ml Syringe IM 09/13/21 10:01 .ONCE ONE Iopamidol 100 ml 09/13/21 08:50 09/13/21 09:11 Iopamidol 612 Mg/Ml 100 Ml Bottle IVPUSH 09/13/21 08:51 100 ml ONETIME ONE Administration Ketorolac Tromethamine 15 mg 09/13/21 08:35 09/13/21 08:45 Ketorolac 15 Mg/Ml Sdv IVPUSH 09/13/21 08:36 15 mg ONETIME ONE Administration Departure - Departure Time of Disposition: 10:02 Disposition: Home, Self-Care 01 Clinical Impression: Low back pain - Discharge Information Prescriptions: Baclofen 10 mg PO BEDTIME #7 tablet Instructions: Chronic Back Pain, [id number] Referrals: PCP,None [Primary Care Provider] - Forms: ED Department Discharge Sepsis Event Note (ED) - Focused Exam Vital Signs: Vital Signs Temp Pulse Resp BP Pulse Ox 09/13/21 08:15 36.4 C 69 16 150/62 H 97 - My Orders Last 24 Hours: My Active Orders 09/13/21 08:50 Sodium Chloride 0.9% [Saline Flush] 10 ml FLUSH ONETIME PRN 09/13/21 09:15 Vaccine to be Administered/Admin Charge [RC] ASDIRECTED - Assessment/Plan Last 24 Hours: My Active Orders 09/13/21 08:50 Sodium Chloride 0.9% [Saline Flush] 10 ml FLUSH ONETIME PRN 09/13/21 09:15 Vaccine to be Administered/Admin Charge [RC] ASDIRECTED Assessment:: Patient is a 66-year-old male presented to emergency room with low back pain. Differential diagnosis considered for this patient include cauda equina syndrome, abdominal aortic aneurysm, kidney stone, musculoskeletal strain. Unremarkable ER course. Patient does feel better after medications administered in the emergency room. Laboratory studies and CT scan performed. 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 No indication for emergent MRI. He will be discharged with outpatient management. Return precautions discussed as usual. Patient agrees with plan of care.
[2021-09-13] MEDS ORDERED: Sodium Chloride 0.9% 10 ML Syringe FLUSH PRN (08:50)
[2021-09-13] MEDS ORDERED: Iopamidol 612 MG/ML 100 ML Bottle IVPUSH ONE (08:50)
--- NOTE | 2021-09-13 09:31 | CT ---
CT abdomen and pelvis Technique: Multiple axial sections were obtained from above the dome of the diaphragm inferiorly through the pubic symphysis. Intravenous contrast was utilized. Reconstructed coronal and sagittal images were obtained. Comparison: No prior CT abdomen or pelvis study is available. Findings: Visualized lung bases show nothing acute. Liver contains no focal abnormality. Spleen appears within normal limits. Adrenal glands show no nodule. Pancreas appears within normal limits. Gallbladder contains no calcified gallstones. Kidneys show symmetric contrast enhancement. No hydronephrosis or mass is seen. Small cyst is felt to be present within the mid right kidney which measures 6 mm. Abdominal aorta shows mild atherosclerotic change. No aneurysm is seen. No retroperitoneal adenopathy is noted. No mesenteric abnormalities are seen. No pelvic mass or adenopathy is identified. Scattered increased stool is seen within the colon. Appendix is seen which is normal in size. Impression: 1. Slight increased stool within the colon. 2. Small cyst within the right kidney. 3. Nothing acute is appreciated on CT study of the abdomen and pelvis. Diagnostic code #2
--- NOTE | 2021-09-13 09:40 | CT ---
CT lumbar spine Technique: Multiple axial sections were obtained from above the T12-L1 disc inferiorly through the L5-S1 disc. Intravenous contrast is seen from recent CT abdomen and pelvis study. Reconstructed coronal and sagittal images were obtained. Findings: T10-11: No central canal stenosis or neural foraminal stenosis is seen. T11-12: Mild disc space narrowing is seen. No central canal stenosis or neural foraminal stenosis is seen. T12-L1: Posterior disc is preserved. No central canal stenosis is seen. Neural foramina are patent. L1-2: Posterior disc is preserved. No central canal stenosis is seen. Neural foramina are patent. L2-3: Minimal retrolisthesis by several millimeters is noted. Mild degenerative apophyseal change is noted. Circumferential disc bulge is present. Disc space is also mildly narrowed. Findings cause minimal central canal stenosis. Slight disc bulging is seen into both inferior neural foramina. Neural foramina appear to be patent where the nerve roots exit. L3-4: Mild degenerative apophyseal change is seen. Slight circumferential disc bulge is noted. No central canal stenosis is noted. Neural foramina are patent where the nerve roots exit. L4-5: Minimal anterior spondylolisthesis is seen by several millimeters which is due to moderate degenerative apophyseal change. Possible disc herniation is noted to the right of midline. No central canal stenosis is seen. No definite compromise upon the exiting nerve roots is seen. L5-S1: Slight posterior disc space narrowing is seen. Mild circumferential disc bulge is noted. Mild vacuum disc phenomena is seen. No central canal stenosis is seen. Neural foramina are felt to be patent where the nerve roots exit. Minimal degenerative apophyseal change is seen. No acute fracture is seen. Impression: 1. Diffuse degenerative change as noted above. Most prominent finding is possible disc herniation to the right of midline at L4-5. This could be confirmed by MRI if clinically needed. 2. No acute fracture is seen. Diagnostic code #3
[2021-09-13] MEDS ORDERED: FLU Vacc QS2021-22 36MOS UP/PF 60 MCG/0.5 ML Syringe IM ONE (10:00)
== END 2021-09-13 10:35 | disposition home or self-care (01) ==
LOC: JD.ED 08:03
DX: M54.50 Low back pain, unspecified (principal); E11.9 Type 2 diabetes mellitus without complications; I10 Essential (primary) hypertension; Z87.891 Personal history of nicotine dependence; Z88.2 Allergy status to sulfonamides; Z79.84 Long term (current) use of oral hypoglycemic drugs; Z86.16 Personal history of COVID-19; Z23 Encounter for immunization
CPT/HCPCS: 36415; 72131; 74177; 80053; 81001; 83690; 85025; 90471; 96374; 99284; A9270; J1885; Q9967; G0008

== ENCOUNTER 2021-11-21 14:21 | Emergency (ER) | payer BC | END 2021-11-21 17:30 | disposition home or self-care (01) | LOC: JD.ED 14:21 | DX: M17.11 Unilateral primary osteoarthritis, right knee (principal); E11.9 Type 2 diabetes mellitus without complications; I10 Essential (primary) hypertension; Z88.2 Allergy status to sulfonamides; Z79.84 Long term (current) use of oral hypoglycemic drugs; Z86.16 Personal history of COVID-19 | CPT/HCPCS: 36415; 73564-26-RT; 73564-RT; 80053; 85025; 85652; 86140; 93971-26-RT; 93971-RT; 99284; 99284-25 ==

== ENCOUNTER 2022-07-06 16:37 | Emergency (ER) | payer BC ==
[2022-07-06] MEDS ORDERED: Sodium Chloride 0.9% 10 ML Syringe FLUSH PRN (17:44)
[2022-07-06] MEDS ORDERED: Lidocaine 1% with EPINEPHrine 1:100,000 10 ML MDV INJECT ONE (17:44)
[2022-07-06] MEDS ORDERED: Ketorolac 15 MG/ML SDV IVPUSH ONE (17:44)
[2022-07-06] MEDS ORDERED: Triamcinolone Acetonide 40 MG/ML 1 ML SDV INJECT STA (20:53)
[2022-07-06] MEDS ORDERED: Bupivacaine 0.25% 10 ML SDV INJECT STA (20:55)
[2022-07-06] MEDS ORDERED: Triamcinolone Acetonide 40 MG/ML 1 ML SDV ONE ×2 (21:10→21:35)
[2022-07-06] MEDS ORDERED: Bupivacaine 0.5% 10 ML SDV ONE (21:30)
== END 2022-07-06 22:12 | disposition home or self-care (01) ==
LOC: JD.ED 16:37
DX: M17.12 Unilateral primary osteoarthritis, left knee (principal); I10 Essential (primary) hypertension; E11.9 Type 2 diabetes mellitus without complications; Z88.2 Allergy status to sulfonamides; Z79.84 Long term (current) use of oral hypoglycemic drugs; Z86.16 Personal history of COVID-19
CPT/HCPCS: 20610; 36415; 73564; 80053; 82945; 83615; 84157; 85025; 85652; 86140; 89050; 89060; 96374; 96375; 99283; J1885; J3490; 99284